=== PATIENT | female | born 1955 | race African-American/Black ===

== ENCOUNTER 2019-05-11 13:15 | Emergency (ER) | payer SELFPAY ==
[~2019-05-11] VITALS: Ht 167.6 cm; Wt 95.3 kg
[2019-05-11 14:05] VITALS: BP 151/86
[2019-05-11] MEDS ORDERED: METHOCARBAMOL 500 MG TAB PO ONE (14:30)
[2019-05-11] MEDS ORDERED: KETOROLAC TROMETH 60MG/2ML VIAL IM ONE (14:30)
== END 2019-05-11 15:25 | disposition home or self-care (01) ==
LOC: ER 13:26
DX: I10 Essential (primary) hypertension (principal); M54.42 Lumbago with sciatica, left side; Z88.6 Allergy status to analgesic agent
CPT/HCPCS: 96372; 99283; J1885

== ENCOUNTER 2022-05-02 06:18 | Emergency (ER) | payer OTHER ==
[~2022-05-02] VITALS: Ht 167.6 cm; Wt 99.0 kg
[2022-05-02 07:19] VITALS: BP 150/99
[2022-05-02] MEDS ORDERED: ACETAMINOPHEN 500 MG TAB PO ONE (09:00)
[2022-05-02] MEDS ORDERED: HYDR50CA PO ×2 (09:41→09:43)
[2022-05-02] MEDS ORDERED: TRIA37.56 PO ×2 (09:41→09:43)
[2022-05-02] MEDS ORDERED: ACET-1080 PO (09:41)
== END 2022-05-02 09:53 | disposition home or self-care (01) ==
LOC: ER 06:18
DX: I10 Essential (primary) hypertension (principal); R51.9 Headache, unspecified; Z87.891 Personal history of nicotine dependence
CPT/HCPCS: 70450; 71045; 93005

== ENCOUNTER 2022-09-12 17:02 | Emergency (ER) | payer OTHER ==
[~2022-09-12] VITALS: Ht 167.6 cm; Wt 95.5 kg
[~2022-09-12 17:02] MED LIST: ACET-1080 PO; HYDR50CA PO; TRIA37.56 PO
[2022-09-12 18:13] LABS: Basophils # (auto) 0.1 10 ^3/uL (0-0.2); Basophils % (auto) 0.9 % (0.0-2.0); Eosinophils # (auto) 0.1 10 ^3/uL (0-0.8); Eosinophils % (auto) 1.6 % (0.0-7.0); Hematocrit 42.1 % (36.0-46.0); Hemoglobin 14.3 g/dL (12.2-16.2); Lymphocytes # (auto) 1.1 10 ^3/uL (0.4-5.4); Lymphocytes % (auto) 18.7 % (10.0-50.0); Mean Corpuscular Hemoglobin 31.9 pg (28.0-32.0); Mean Corpuscular Volume 93.9 fL (80.0-100.0); Monocytes # (auto) 0.4 10 ^3/uL (0-1.3); Monocytes % (auto) 7.8 % (0.0-12.0); Red Blood Cells 4.48 10^6/uL (4.0-5.20); Red Cell Distribution Width 16.4 % (11.8-14.3); White Blood Cell 5.7 10^3/uL (4.4-10.8)
[2022-09-12 18:27] LABS: BUN/Creatinine Ratio 15.3; Calcium 9.1 mg/dL (8.5-10.1); Potassium 3.8 mmol/L (3.5-5.1)
[2022-09-12 18:30] LABS: Bilirubin, Total 0.5 mg/dL (0.2-1.0)
[2022-09-12] MEDS ORDERED: hydrALAZINE HCL 20 MG/ML VL IV ONE (20:15)
[2022-09-12] MEDS ORDERED: ASPirin 325 MG TAB PO ONE (20:30)
[2022-09-12] MEDS ORDERED: TRIAMTERENE/HCTZ 37.5/25 MG CAP/TAB PO ONE (21:30)
[2022-09-12] MEDS ORDERED: LABETALOL HCL 5 MG/ML 4ML SYRINGE IV ONE (22:00)
[2022-09-12] MEDS ORDERED: cloNIDine HCL 0.1 MG TAB PO ONE (22:30)
[2022-09-13] MEDS ORDERED: hydrALAZINE HCL 20 MG/ML VL IV PRN (00:45)
[2022-09-13] MEDS ORDERED: amLODIPine BESYLATE 5 MG TAB PO ONE (00:45)
[2022-09-13] MEDS ORDERED: ONDANSETRON HCL 4 MG/2 ML VIAL IV PRN (00:45)
[2022-09-13 00:54] LABS: Urine Bacteria MOD /hpf (None Seen); Urine Blood Negative /uL (Negative); Urine Mucus FEW (None Seen); Urine WBC 5 /hpf (0 - 5)
[2022-09-13] MEDS ORDERED: SODIUM CHLORIDE 0.9% 1,000 ML IV ONE (01:00)
[2022-09-13] MEDS ORDERED: MORPHINE SULFATE 4 MG/ML SYR/VIAL IV ONE (04:00)
[2022-09-13] MEDS ORDERED: ONDANSETRON HCL 4 MG/2 ML VIAL IV ONE (04:00)
[2022-09-13] MEDS ORDERED: LOSA-69 PO (07:26)
[2022-09-13] MEDS ORDERED: amLODIPine BESYLATE 5 MG TAB PO SCH (08:00)
[2022-09-13] MEDS ORDERED: LOSARTAN POTASSIUM 50 MG TAB PO SCH (08:00)
[2022-09-13] MEDS ORDERED: HCTZ 25 MG TAB PO SCH (10:00)
[2022-09-13 13:00] VITALS: BP 130/86
== END 2022-09-13 13:43 | disposition home or self-care (01) ==
LOC: ER 17:02
DX: I21.4 Non-ST elevation (NSTEMI) myocardial infarction (principal); I16.1 Hypertensive emergency; I10 Essential (primary) hypertension; Z91.14 Patient's other noncompliance with medication regimen; Z20.822 Contact with and (suspected) exposure to COVID-19
CPT/HCPCS: 36415; 71045; 80053; 81001; 83735; 83880; 84484; 85025; 87426; 93005; 96374; 96375; 99291; J0360; J2270; J2405

== ENCOUNTER → 2023-02-05 | Outpatient (CLI) | payer OTHER ==
[~2023-02-05] MED LIST changes: +LOSA50TA46 PO; -TRIA37.56 PO; +TRIA37.587 PO
[2023-02-05 15:30] LABS: Basophils # (auto) 0 10 ^3/uL (0-0.2); Basophils % (auto) 0.7 % (0.0-2.0); Eosinophils # (auto) 0.1 10 ^3/uL (0-0.8); Eosinophils % (auto) 1.8 % (0.0-7.0); Lymphocytes # (auto) 1.4 10 ^3/uL (0.4-5.4); Lymphocytes % (auto) 23.6 % (10.0-50.0); Mean Corpuscular Hemoglobin 30.8 pg (28.0-32.0); Mean Corpuscular Hgb Conc. 34.1 g/dL (32.0-36.0); Mean Corpuscular Volume 90.4 fL (80.0-100.0); Monocytes # (auto) 0.5 10 ^3/uL (0-1.3); Monocytes % (auto) 7.9 % (0.0-12.0); Nucleated Red Blood Cells % 0.2 %; Red Blood Cells 4.53 10^6/uL (4.0-5.20); Red Cell Distribution Width 14.5 % (11.8-14.3); White Blood Cell 6.1 10^3/uL (4.4-10.8)
[2023-02-05 15:55] LABS: Urine Bacteria NONE SEEN /hpf (None Seen); Urine Blood Negative /uL (Negative); Urine Specific Gravity 1.017 (1.001-1.035); Urine WBC 2 /hpf (0 - 5)
[2023-02-05 16:10] LABS: Albumin 3.7 g/dL (3.4-5.0); BUN/Creatinine Ratio 12.5 (10.0-20.0); Bilirubin, Total 0.6 mg/dL (0.2-1.0); Total Protein 7.9 g/dL (6.4-8.2)
== END | disposition home or self-care (01) ==
LOC: LAB 15:04
PROVIDERS: ATTEND Student in an Organized Health Care Education/Training Program
DX: Z12.11 Encounter for screening for malignant neoplasm of colon (principal); I10 Essential (primary) hypertension; R73.9 Hyperglycemia, unspecified
CPT/HCPCS: 36415; 80053; 80061; 81001; 83036; 84443; 85025